=== PATIENT | male | born 1955 | race Caucasian/White ===

== ENCOUNTER 2019-02-10 15:52 | Emergency (ER) | payer BC, OTHER ==
[~2019-02-10] VITALS: Ht 188 cm; Wt 95.3 kg
[2019-02-10 16:19] LABS: BASOPHILS # (AUTO) 0.1 10^3/uL (0.0-0.1); BASOPHILS % (AUTO) 1 % (0-10); EOSINOPHILS # (AUTO) 0.3 10^3/uL (0.0-0.3); EOSINOPHILS % (AUTO) 4 % (0-10); HEMATOCRIT 46 % (40-54); HEMOGLOBIN 16.2 G/DL (13.3-17.7); LYMPHOCYTES # (AUTO) 2.3 X 10^3 (1.0-4.0); LYMPHOCYTES % (AUTO) 31 % (12-44); MEAN CORPUSCULAR HEMOGLOBIN 31 PG (25-34); MEAN CORPUSCULAR HGB CONC 35 G/DL (32-36); MEAN CORPUSCULAR VOLUME 88 FL (80-99); MEAN PLATELET VOLUME 10.3 FL (7.4-10.4); MONOCYTES # (AUTO) 0.7 X 10^3 (0.0-1.0); MONOCYTES % (AUTO) 9 % (0-12); NEUTROPHILS # (AUTO) 3.9 X 10^3 (1.8-7.8); NEUTROPHILS % (AUTO) 54 % (42-75); PLATELET COUNT 272 10^3/uL (130-400); RED CELL DISTRIBUTION WIDTH 12.6 % (10.0-14.5); WHITE BLOOD COUNT 7.2 10^3/uL (4.3-11.0)
--- NOTE | 2019-02-10 16:24 | ED Chest Pain ---
General Chief Complaint: Cardiac/General Problems Stated Complaint: CHEST DISCOMFORT/SOB History of Present Illness Date Seen by Provider: Feb 10, 2019 Time Seen by Provider: 15:57 Initial Comments 63-year-old male presents for chest pressure and shortness of air. He is an avid walker, averaging 3-5 miles daily. Over the last week, he's noticed becoming short of air easily and chest pressure, intermittently. He does not describe it as pain and he does not describe any radiation. He has history of hypertension no other cardiac risk factors. He denies any nausea or diaphoresis associated with the pain. No family history of heart disease. He took ASA today. Timing/Duration: 1 week Severity/Quality: mild Location: substernal Radiation: no radiation Prior CP/Workup: no prior chest pain ASA po PROJECT SCHEDULER: Yes NTG SL PROJECT SCHEDULER: No Associated Symptoms: denies symptoms Allergies and Home Medications Allergies Coded Allergies: Penicillins (Unverified Allergy, Unknown, 02/10/19) Patient Home Medication List Home Medication List Reviewed: Yes Review of Systems Review of Systems Constitutional: no symptoms reported, see HPI EENTM: No Symptoms Reported, See HPI Respiratory: See HPI, Shortness of Air Cardiovascular: See HPI, Chest Pain Gastrointestinal: No Symptoms Reported, See HPI; Denies Nausea All Other Systems Reviewed Negative Unless Noted: Yes Past Bzlyngj-Ybunoz-Bhcmvj Hx Past Med/Social Hx: Reviewed Nursing Past Med/Soc Hx Patient Social History Recent Foreign Travel: No Contact w/Someone Who Travel: No Physical Abuse: No Sexual Abuse: No Physical Exam Vital Signs Vital Signs - First Documented 02/10/19 16:26 Temp 100.2 Pulse 89 Resp 22 B/P (MAP) 232/132 (165) Pulse Ox 95 O2 Delivery Room Air Capillary Refill : Less Than 3 Seconds Height, Weight, BMI Height: '" Weight: lbs. oz. kg; BMI Method: General Appearance: No Apparent Distress, WD/WN HEENT: PERRL/EOMI, TMs Normal, Normal ENT Inspection, Pharynx Normal Neck: Full Range of Motion, Normal Inspection, Non Tender, Supple Respiratory: Chest Non Tender, Lungs Clear, Normal Breath Sounds Cardiovascular: Regular Rate, Rhythm, No Edema, No Murmur, Normal Peripheral Pulses Gastrointestinal: Normal Bowel Sounds, Non Tender, Soft; No Distended, No Guarding, No Mass, No Rebound Extremity: Normal Capillary Refill, Normal Inspection, Normal Range of Motion, No Pedal Edema Neurologic/Psychiatric: Alert, Oriented x3, No Motor/Sensory Deficits, Normal Mood/Affect Skin: Normal Color, Warm/Dry Progress/Results/Core Measures Results/Orders Lab Results Laboratory Tests Test 02/10/19 16:00 Range/Units White Blood Count 7.2 4.3-11.0 10^3/uL Red Blood Count 5.23 4.35-5.85 10^6/uL Hemoglobin 16.2 13.3-17.7 G/DL Hematocrit 46 40-54 % Mean Corpuscular Volume 88 80-99 FL Mean Corpuscular Hemoglobin 31 25-34 PG Mean Corpuscular Hemoglobin Concent 35 32-36 G/DL Red Cell Distribution Width 12.6 10.0-14.5 % Platelet Count 272 130-400 10^3/uL Mean Platelet Volume 10.3 7.4-10.4 FL Neutrophils (%) (Auto) 54 42-75 % Lymphocytes (%) (Auto) 31 12-44 % Monocytes (%) (Auto) 9 0-12 % Eosinophils (%) (Auto) 4 0-10 % Basophils (%) (Auto) 1 0-10 % Neutrophils # (Auto) 3.9 1.8-7.8 X 10^3 Lymphocytes # (Auto) 2.3 1.0-4.0 X 10^3 Monocytes # (Auto) 0.7 0.0-1.0 X 10^3 Eosinophils # (Auto) 0.3 0.0-0.3 10^3/uL Basophils # (Auto) 0.1 0.0-0.1 10^3/uL Prothrombin Time 12.8 12.2-14.7 SEC INR Comment 0.9 0.8-1.4 Activated Partial Thromboplast Time 26 24-35 SEC Sodium Level 138 135-145 MMOL/L Potassium Level 3.6 3.6-5.0 MMOL/L Chloride Level 98 98-107 MMOL/L Carbon Dioxide Level 29 21-32 MMOL/L Anion Gap 11 5-14 MMOL/L Blood Urea Nitrogen 14 7-18 MG/DL Creatinine 1.08 0.60-1.30 MG/DL Estimat Glomerular Filtration Rate > 60 BUN/Creatinine Ratio 13 Glucose Level 96 70-105 MG/DL Calcium Level 9.6 8.5-10.1 MG/DL Corrected Calcium 9.4 8.5-10.1 MG/DL Magnesium Level 1.8 1.6-2.4 MG/DL Total Bilirubin 0.4 0.1-1.0 MG/DL Aspartate Amino Transf (AST/SGOT) 31 5-34 U/L Alanine Aminotransferase (ALT/SGPT) 31 0-55 U/L Alkaline Phosphatase 81 40-136 U/L Myoglobin 62.7 10.0-92.0 NG/ML Troponin I < 0.028 <0.028 NG/ML B-Type Natriuretic Peptide 123.5 H <100.0 PG/ML Total Protein 6.9 6.4-8.2 GM/DL Albumin 4.2 3.2-4.5 GM/DL My Orders Orders - FRANCE CLAIRE Cbc With Automated Diff (02/10/19 16:12) Magnesium (02/10/19 16:12) Chest 1 View, Ap/Pa Only (02/10/19 16:12) Ekg Tracing (02/10/19 16:12) Cardiac Profile 1 (02/10/19 16:12) Comprehensive Metabolic Panel (02/10/19 16:12) Myoglobin Serum (02/10/19 16:12) Protime With Inr (02/10/19 16:12) Partial Thromboplastin Time (02/10/19 16:12) Monitor-Rhythm Ecg Trace Only (02/10/19 16:12) Ed Iv/Invasive Line Start (02/10/19 16:12) BNP (02/10/19 16:12) Vital Signs/I&O 02/10/19 02/10/19 16:26 17:28 Temp 100.2 99.1 Pulse 89 75 Resp 22 9 B/P (MAP) 232/132 (165) 156/98 (117) Pulse Ox 95 93 O2 Delivery Room Air Room Air Progress Progress Note : Time: 15:57 Progress Note Patient seen and evaluated, we'll obtain EKG, chest x-ray, and labs. Patient alert he took aspirin 325 mg twice today, once this morning and just PROJECT SCHEDULER. 1630 No further symptoms, awaiting labs. Chest x-ray normal. B/P improving. 1700 all labs within normal limits, BNP 123, no previous to review. Discussed results with the patient and his family. They will follow up with cardiology. Return to emergency department if symptoms return or worsen. Discharge instructions and return precautions reviewed. All questions answered. Initial ECG Impression Date: Feb 10, 2019 Initial ECG Impression Time: 15:58 Initial ECG Rate: 88 Initial ECG Rhythm: Normal Sinus Initial ECG Intervals: Normal Initial ECG Intervals MD 144, QRSD 100, QT 356, QTc 431. Vanduser P 20, QRS -11, T 21. Initial ECG Impression: Normal Initial ECG Comparisson: No Previous ECG Available Diagnostic Imaging Diagonstic Imaging: Xray Plain Films/CT/US/NM/MRI: chest Comments NAME: ZINA RAMIREZ [facility] REC#: [id number] PHYSICIAN: FRANCE CLAIRE CC: JOSE MANUEL SÁNCHEZ; FRANCE CLAIRE Page 1 of 1 RADIOLOGY REPORT [facility], [place], [place] CC: JOSE MANUEL SÁNCHEZ; FRANCE CLAIRE Page 1 of 1 RADIOLOGY REPORT NAME: ZINA RAMIREZ [facility] REC#: [id number] PT STATUS: REG ER : 1955 PHYSICIAN: FRANCE CLAIRE ADMIT DATE: 02/10/19/ER Signed Date of Exam: 02/10/19 CHEST 1 VIEW, AP/PA ONLY INDICATION: Chest pain COMPARISON: None. FINDINGS: Frontal view of the chest demonstrates clear lungs bilaterally. The heart size is normal. There is no pneumothorax. Osseous structures are normal. IMPRESSION: No acute findings. Normal chest. Dictated by: Dictated on workstation # [id number] Dict: 02/10/19 1624 Trans: 02/10/19 1625 Interpreted by: JOSE MANUEL SÁNCHEZ Electronically signed by: JOSE MANUEL SÁNCHEZ 02/10/19 1625 Departure Impression Primary Impression: Shortness of breath on exertion Additional Impression: Chest pressure Disposition: 01 HOME, SELF-CARE Condition: Improved Departure-Patient Inst. Decision time for Depature: 17:00 Referrals: NO,LOCAL PHYSICIAN (PCP/Family) Primary Care Physician Patient Instructions: Chest Pain (DC), Palpitations (DC), Shortness of Breath (Dyspnea) (DC) Add. Discharge Instructions: Continue with activity as tolerated. Follow-up with your primary care provider and consider referral to cardiology. Schedule appt with Gila Chavez or [facility]. Continue with your aspirin daily. Return to emergency department for chest pain, palpitations, or worsening of symptoms. All discharge instructions reviewed with patient and/or family. Voiced understanding. FRANCE CLAIRE Feb 10, 2019 16:24
--- NOTE | 2019-02-10 16:27 | Diagnostic Imaging Report ---
INDICATION: Chest pain COMPARISON: None. FINDINGS: Frontal view of the chest demonstrates clear lungs bilaterally. The heart size is normal. There is no pneumothorax. Osseous structures are normal. IMPRESSION: No acute findings. Normal chest. Dictated by: Dictated on workstation # [id number]
[2019-02-10 16:28] LABS: INR 0.9 (0.8-1.4); PROTHROMBIN TIME PATIENT 12.8 SEC (12.2-14.7)
[2019-02-10 16:32] LABS: ALANINE AMINOTRANSFERASE 31 U/L (0-55); ALBUMIN 4.2 GM/DL (3.2-4.5); ALKALINE PHOSPHATASE 81 U/L (40-136); BILIRUBIN,TOTAL 0.4 MG/DL (0.1-1.0); BUN/CREATININE RATIO 13; CALCIUM 9.6 MG/DL (8.5-10.1); CARBON DIOXIDE 29 MMOL/L (21-32); CHLORIDE 98 MMOL/L (98-107); CREATININE SERUM 1.08 MG/DL (0.60-1.30); GFR ESTIMATED > 60; GLUCOSE 96 MG/DL (70-105); MAGNESIUM 1.8 MG/DL (1.6-2.4); POTASSIUM 3.6 MMOL/L (3.6-5.0); SODIUM 138 MMOL/L (135-145); TOTAL PROTEIN 6.9 GM/DL (6.4-8.2)
[2019-02-10 17:28] VITALS: BP 156/98
== END 2019-02-10 17:28 | disposition home or self-care (01) ==
LOC: EDUNIT# 15:52 → ER 15:54
DX: R07.89 Other chest pain (principal); R06.02 Shortness of breath; Z88.0 Allergy status to penicillin
CPT/HCPCS: 36415; 71045; 80053; 83735; 83874; 83880; 84484; 85025; 85610; 85730; 93005; 93041